=== PATIENT | female | born 1960 | race Caucasian/White ===

== ENCOUNTER 2021-06-10 14:09 | Emergency (ER) | payer BC, SELFPAY ==
[2021-06-10] VITALS (25 sets, daily range): BP systolic 110–127; BP diastolic 75–78; PULSE 90–105; RESP 12–19; TEMP 36.6; O2SAT 96–100
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
[2021-06-10] MEDS: fentaNYL 100 MCG/2 ML VIAL 50 MCG IVP (14:25)
[2021-06-10 14:26] LABS: Abs Immature Grans 0.09 10^3/uL (0.0-0.06); Absolute Basophil Count 0.06 10^3/uL (0.0-0.2); Absolute Eosinophil Count 0.11 10^3/uL (0.0-0.7); Absolute Lymphocyte Count 2.06 10^3/uL (1.2-3.4); Absolute Monocyte Count 0.59 10^3/uL (0.1-0.8); Absolute Neutrophil Count 8.97 10^3/uL (1.2-6.7); Basophils % 0.5; Eosinophils % 0.9; HCT 40.4 % (36.0-46.0); HGB 13.2 g/dL (11.2-15.7); Immature Grans % 0.8; Lymphocytes % 17.3; MCH 30.7 pg (27.0-33.0); MCHC 32.7 % (32.0-36.0); MPV 9.7 fL (8.0-11.0); Neutrophils % 75.5; Nucleated RBC 0 %; Platelet Count 256 10^3/uL (130-400); RDW 13.6 % (11.7-14.6); RDW-SD 46.7 fL; WBC 11.88 10^3/uL (4.4-10.8)
[2021-06-10 14:37] LABS: Magnesium 2.1 mg/dL (1.8-2.4)
[2021-06-10 14:40] LABS: ALT 41 U/L (14-59); AST 45 U/L (15-37); Albumin 3.9 g/dL (3.4-5.0); Alkaline Phosphatase 78 U/L (46-116); Anion Gap 8.3 mmol/L (3-11); BUN 17 mg/dL (7-18); Bilirubin, Total 0.4 mg/dL (0.2-1.0); CO2 27.7 mmol/L (21.0-32.0); Calcium 8.8 mg/dL (8.5-10.1); Chloride 105 mmol/L (98-107); Estimated GFR 56.37 (mL/min/1.73m2); Glucose 125 mg/dL (74-106); Lipase 82 U/L (73-393); Potassium 3.6 mmol/L (3.5-5.1); Sodium 141 mmol/L (136-145); Total Protein 7.7 g/dL (6.4-8.2)
[2021-06-10] MEDS: Ondansetron 4 MG/2 ML VIAL IVP (14:40)
[2021-06-10] MEDS: Omnipaque 350 MG/ML 100 ML BTL IJ (15:06)
[2021-06-10] MEDS: Normal Saline 1,000 ML 1000 ML IV (15:10)
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
[2021-06-10] MEDS: HYDROmorphone 2 MG/ML VIAL 1 MG IVP ×2 (16:55→19:30)
[2021-06-10 17:06] LABS: Source Nasal/Nares
[2021-06-10 17:24] LABS: Bilirubin Negative (Negative); Blood Trace-intact (Negative); Clarity Clear (Clear); Glucose Negative (Negative); Ketones 15 mg/dL (Negative); Leukocyte Esterase Negative (Negative); Nitrite Negative (Negative); Urobilinogen 0.2 EU/dL (Up TO 0.2); pH 5.5 (5-8)
[2021-06-10 17:32] LABS: Bacteria Negative HPF (Negative); C & S Indicated? No; Casts Negative LPF (Negative); Crystals Negative HPF (Negative); Epithelial Cells Rare HPF (Negative); Mucus Negative (Negative); Other Cells Negative (Negative); RBC 0-2 HPF (0-2)
[2021-06-10 18:02] LABS: COVID-19 PCR Negative (Negative)
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
== END 2021-06-10 19:35 | disposition short-term general hospital (02) ==
PROVIDERS: Physician Assistant; Emergency Provider Physician Assistant
DX: S27.0XXA Traumatic pneumothorax, initial encounter (principal); S22.42XA Multiple fractures of ribs, left side, initial encounter for closed fracture; S42.022A Displaced fracture of shaft of left clavicle, initial encounter for closed fracture; S06.891A Other specified intracranial injury with loss of consciousness of 30 minutes or less, initial encounter; V19.9XXA Pedal cyclist (driver) (passenger) injured in unspecified traffic accident, initial encounter; Z20.822 Contact with and (suspected) exposure to COVID-19
CPT/HCPCS: 36415; 51701; 74177; 80053; 83690; 87635; 96361; 96374; 96375; 96376; 99291; 70450; 71260; 72125; 81003; 81015; 83735; 85025; J2405; J3010; J3490